=== PATIENT | female | born 1950 | race Caucasian/White ===

== ENCOUNTER 2017-01-07 17:12 | Observation (INO) | payer OTHER, MEDICARE ==
[2017-01-07 16:35] LABS: BASO % 0.1 % (0-2); EOS % 0.8 % (0-7); EOSINOPHIL ABSOLUTE COUNT 0.1 tho/cmm (0.0-0.7); HCT-HEMATOCRIT 37.7 % (34.0-49.0); IMMATURE GRANULOCYTES ABSOLUTE 0.08 tho/cmm (0-0.03); IMMATURE GRANULOCYTES PERCENT 0.7 % (0-0.3); LYMPH % 13.8 % (20-45); LYMPH ABSOLUTE COUNT 1.6 tho/cmm (0.8-4.5); MCH (MEAN CORPUSCULAR HGB) 32.3 pg (28.0-32.0); MCHC MEAN CORPUSCULAR HGB CONC 34.5 % (32.0-36.0); MCV (MEAN CELL VOLUME) 93.8 fl (82.0-96.0); MEAN PLATELET VOLUME 9.7 cmc (9.4-12.4); MONO % 6.4 % (0-12); MONOCYTE ABSOLUTE COUNT 0.8 tho/cmm (0.0-1.2); NEUTROPHIL ABSOLUTE COUNT 9.3 tho/cmm (1.6-8.0); NEUTROPHIL-AUTOMATED 9.3 tho/cmm (1.6-8.0); NEUTROPHILS % 78.2 % (40-80); PLATELET COUNT 352 tho/cmm (150-450); RED BLOOD COUNT 4.02 mil/cmm (4.00-5.20); RED CELL DISTRIBUTION WIDTH 14.2 % (12.4-16.4); WHITE BLOOD COUNT 11.8 tho/cmm (4.0-10.0)
[2017-01-07 16:53] LABS: ANION GAP 14 mmol/L (0-20); BLOOD UREA NITROGEN 9 mg/dl (6-24); CALCIUM 8.6 mg/dl (8.5-10.5); CARBON DIOXIDE-VENOUS 27 mmol/L (22-32); CHLORIDE 102 mmol/l (96-110); CREATININE 0.64 mg/dl (0.50-1.10); GLUCOSE 146 mg/dL (70-110); MAGNESIUM 1.3 mg/dl (1.3-2.6); SODIUM 140 mmol/L (135-145); eGFR VALUE FOR BLACK >90 mL/Min
[~2017-01-07 17:12] MED LIST: ACTOS; ACTOS15 MG; ALDACTONE25 M1 PO; ALPRAZOLAM0.25 M3 PO; AMARYL4 MG; AMILORIDE HCL5 M1 PO; AMILORIDE PO; ANASTROZOLE1 M1 PO; ASPIR-TRIN325 M2 PO; ASPIRIN EC81 MG PO; ASPIRIN325 M3 PO; COLACE100 MG PO; COREG6.25 MG PO; COZAAR100 M1 PO; COZAAR25 M1 PO; COZAAR50 MG; COZAAR50 MG PO; CYCLOBENZAPRINE5 M1 PO; CYMBALTA60 MG; ESTROPIPATE1.5 MG; EXCEDRIN MIGRA1 EAC3 PO; FIORINAL 50-321 EACH PO; FISH OIL 1,0001 EA10 PO; GABAPENTIN300 M1 PO; GABAPENTIN300 MG PO; GLIMEPIRIDE4 MG; GLIPIZIDE XL10 M1 PO; GLIPIZIDE10 M2 PO; GLIPIZIDE5 MG PO; GLUCOPHAGE1000 MG PO; GLUCOPHAGE500 MG; HUMALOG100 U/ML SC; HUMALOG100 UNIT/2 SQ; HUMULIN N100 UNIT/2 SC; HYDROCODONE/APA1 CAP PO; HYDROCODONE/APA1 TA; IBUPROFEN400 MG PO; IMODIUM2 MG PO; JANUVIA100 MG PO; K-DUR20 ME1 PO; L-PHENYLALANIN500 MG PO; LASIX40 M1 PO; LEVEMIR FL100 UNIT/2 SQ; LEVEMIR100 U/M SC; LEVEMIR100 U/ML SC; LOPRESSOR25 MG/TA7 PO; LOPRESSOR50 M1 PO; MAGNESIUM OXID400 M1 PO; MAGNESIUM250 M2 PO; MED FOR RESTLESS LEG PO; METHADONE5 MG; METOPROLOL TART25 M1 PO; MIRALAX17 G1 PO; MOBIC7.5 MG; MOTRIN800 MG PO; NABUMETONE750 M1 PO; NASAL DECONGEST10 M1 PO; NEURONTIN; NEURONTIN300 M1 PO; NORCO 7.5/325 T1 TAB PO; NOVOLOG100 UNITS/ SC; OGEN1.5 MG PO; OMNICEF300 MG PO; PERCOCET 10-321 EACH PO; PERCOCET 5-3251 EACH PO; PHENERGAN W/CO120 ML PO; POTASSIUM CHLO10 ME2 PO; PRAVACHOL40 M1 PO; PRAVASTATIN SOD40 MG PO; PREVACID30 MG; PRILOSEC40 MG PO; QUESTRAN LIGH4 G/PKT PO; REMERON; SAVELLA1 EACH PO; SAVELLA50 M1 PO; SENOKOT-S TABL1 EACH PO; SPIROLACTONE; SPIRONOLACTONE25 MG; TAMOXIFEN CITRA20 M1 PO; TRADJENTA5 M1 PO; TRAMADOL HCL E100 M1 PO; TRAMADOL HCL50 M2 PO; TYLENOL EXTRA500 M1 PO; TYLENOL325 M1 PO; ULTRAM50 M1 PO; ULTRAM50 MG PO; VIBRAMYCIN100 MG/TA1 PO; VICTOZA 2-0.6 MG/0.1 SC; VITAMIN D; VITAMIN D1000 UNI2 PO; VITORIN; VYTORIN 10/20 T1 TAB; ZANTAC300 MG PO; ZITHROMAX250 M1 PO; ZYRTEC10 M7 PO; ZYRTEC10 MG; ZYRTEC10 MG PO; ZYRTEC1010 PO; [UNRECOGNIZED DRUG - OTHER]; [UNRECOGNIZED DRUG - OTHER]; [UNRECOGNIZED DRUG - OTHER] PO; [UNRECOGNIZED DRUG - OTHER] PO
[2017-01-07] MEDS ORDERED: SINUS DECONGEST10 MG PO (18:41)
[2017-01-07 23:03] LABS: ALCOHOL (ETOH) <10 mg/dl (<10); POTASSIUM 3.1 mmol/L (3.7-5.1)
[2017-01-07 23:06] LABS: TSH-THYROID STIMULATING HORM. 1.15 uIU/ml (0.40-3.80)
[2017-06-28] MEDS ORDERED: MOBIC7.5 M2 PO (03:32)
[2017-06-28] MEDS ORDERED: ALDACTONE25 M1 PO (03:33)
[2017-06-28] MEDS ORDERED: ULTRAM50 M1 PO (03:33)
[2017-06-28] MEDS ORDERED: NOVOLOG MI100 UNITS/ SC ×2 (03:33)
[2017-06-28] MEDS ORDERED: BUTALB-ACETAMI1 EAC1 PO (03:34)
[2017-06-28] MEDS ORDERED: CYMBALTA30 M1 PO (03:35)
[2017-06-28] MEDS ORDERED: CYCLOBENZAPRINE10 M1 PO (13:49)
[2017-07-01] MEDS ORDERED: NORCO 5/3251 TAB PO (05:47)
[2017-07-04] MEDS ORDERED: CYCLOBENZAPRINE10 M1 PO ×2 (08:12→10:36)
[2017-07-04] MEDS ORDERED: NORCO 5-325 TA1 EACH PO (08:14)
[2017-07-04] MEDS ORDERED: ULTRAM50 M1 PO (10:36)
== END 2017-01-08 12:05 ==
LOC: EDMED 17:12 → EMR2 21:34 → CAR1 22:12
PROVIDERS: Emergency Medicine; ADMIT Internal Medicine
DX: R00.0 Tachycardia, unspecified (principal); I10 Essential (primary) hypertension; G47.33 Obstructive sleep apnea (adult) (pediatric); E78.5 Hyperlipidemia, unspecified; E87.6 Hypokalemia; E11.9 Type 2 diabetes mellitus without complications; Z90.49 Acquired absence of other specified parts of digestive tract; Z90.710 Acquired absence of both cervix and uterus; Z98.41 Cataract extraction status, right eye; Z79.4 Long term (current) use of insulin; Z79.899 Other long term (current) drug therapy; Z79.82 Long term (current) use of aspirin; Z98.890 Other specified postprocedural states
CPT/HCPCS: G0378; G0480; J1815